=== PATIENT | female | born 1950 | race Asian ===

== ENCOUNTER 2025-02-04 17:05 | Inpatient (IN) | payer OTHER ==
[~2025-02-04] VITALS: Ht 147.3 cm; Wt 53.2 kg
[2025-02-04 17:07] VITALS: O2SAT 100
[2025-02-04] MEDS: SODIUM CHLORIDE 0.9% 1,000 ML IV ONE (18:25)
[2025-02-04 18:55] LABS: BASOPHILS % 0.2 % (0.0-2.0); EOSINOPHILS % 0.3 % (0.0-5.0); HEMATOCRIT. 42.6 % (36.0-48.0); HEMOGLOBIN. 13.8 g/dL (12.0-16.0); LYMPHOCYTES % 7.5 % (20.0-50.0); MEAN PLATELET VOLUME 7.8 fl (7.4-10.4); MONOCYTES % 4.2 % (2.0-8.0); NEUTROPHILS % 87.8 % (40.0-76.0); PLATELET 264 x1000/uL (130-400); RED BLOOD CELL COUNT 4.75 mill/uL (4.2-5.4); RED CELL DISTRIBUTION WIDTH 13.7 % (11.6-14.6)
[2025-02-04 19:13] LABS: CREATININE 1.2 mg/dL (0.6-1.0); UREA NITROGEN BLOOD 16 mg/dL (9-23)
[2025-02-04 19:15] LABS: ASPARTATE AMINOTRANSFERASE 213 IU/L (<34)
[2025-02-04 19:16] LABS: BILIRUBIN DIRECT < 0.1 mg/dL (<=3.0); BILIRUBIN TOTAL 0.3 mg/dL (0.1-1.0); PROTEIN TOTAL 7.0 g/dL (6.0-8.3)
[2025-02-04 19:18] LABS: TROPONIN I HIGH SENSITIVITY 365 ng/L (3.0-34)
[2025-02-04 21:06] LABS: TROPONIN I HIGH SENSITIVITY 684 ng/L (3.0-34)
[2025-02-04 21:50] VITALS: BP 176/96; PULSE 83; RESP 18; TEMP 36.8; TEMP 36.8628; O2SAT 93
[2025-02-04] MEDS ORDERED: ONDANSETRON HCL 4MG/2ML INJ IV PRN (22:00)
[2025-02-04] MEDS ORDERED: MAGNESIUM/ALUMINUM HYDROXIDE/SIMETHICONE 30ML UDC PO PRN (22:00)
[2025-02-04] MEDS ORDERED: HYDROCODONE/ACETAMINOPHEN 5/325MG TABLET PO PRN (22:00)
[2025-02-04] MEDS ORDERED: MORPHINE SULFATE 4 MG/ML INJ (FOR IV/IM USE) IV PRN (22:00)
[2025-02-04] MEDS ORDERED: ACETAMINOPHEN 325MG TABLET PO PRN (22:00)
[2025-02-04] MEDS: DEXT 5%/0.45% NACL 1000ML 1,000 ML IV SCH (23:09)
[2025-02-04] MEDS: ENOXAPARIN 40MG/0.4ML SYR SUBCUT SCH (23:09)
[2025-02-04] MEDS: ACETAMINOPHEN 325MG TABLET PO SCH (23:09)
[2025-02-04] MEDS ORDERED: OLAN5TAB74 PO (23:54)
[2025-02-04] MEDS ORDERED: OLAN2.5T77 PO (23:54)
[2025-02-05] VITALS: BP 118/61; PULSE 68; RESP 16; TEMP 36.6; O2SAT 95
[2025-02-05] MEDS ORDERED: IOHEXOL-350 100 ML BOTTLE ONE (02:09)
[2025-02-05 04:00] VITALS: BP_SYST 123; BP_SYST 159; BP_DIAS 49; BP_DIAS 63; PULSE 40; PULSE 73; RESP 15; RESP 17; TEMP 35.7; TEMP 36.3; O2SAT 100
[2025-02-05 07:22] LABS: BASOPHILS % 0.5 % (0.0-2.0); EOSINOPHILS % 0.3 % (0.0-5.0); HEMATOCRIT. 38.7 % (36.0-48.0); HEMOGLOBIN. 12.8 g/dL (12.0-16.0); LYMPHOCYTES % 17.6 % (20.0-50.0); MEAN PLATELET VOLUME 8.2 fl (7.4-10.4); MONOCYTES % 6.3 % (2.0-8.0); NEUTROPHILS % 75.3 % (40.0-76.0); PLATELET 252 x1000/uL (130-400); RED BLOOD CELL COUNT 4.33 mill/uL (4.2-5.4); RED CELL DISTRIBUTION WIDTH 13.7 % (11.6-14.6)
[2025-02-05 07:50] LABS: TRIGLYCERIDE 85.0 mg/dL (0-150)
[2025-02-05 07:51] LABS: LDL CHOLESTEROL 104.0 mg/dL (5-100)
[2025-02-05 08:00] VITALS: BP 181/69; PULSE 58; RESP 18; TEMP 37.1; O2SAT 98
[2025-02-05 08:02] LABS: TROPONIN I HIGH SENSITIVITY 1001.0 ng/L (3.0-34)
[2025-02-05] MEDS ORDERED: IOHEXOL-300 100 ML BOTTLE ONE (08:09)
[2025-02-05] MEDS: CLONIDINE 0.1MG TABLET PO PRN (08:26)
[2025-02-05] MEDS: PANTOPRAZOLE SODIUM 40 MG/VIAL IV SCH (08:26)
[2025-02-05] MEDS ORDERED: NALOXONE HCL 0.4MG/ML VIAL IV PRN (09:45)
[2025-02-05] MEDS ORDERED: IPRATROPIUM/ALBUTEROL 0.5-3(2.5)MG/3ML NEB HHN PRN (10:00)
[2025-02-05] MEDS: ISOSORBIDE MONONITRATE 30MG TABLET SR 24HR PO SCH (11:40)
[2025-02-05] MEDS: ASPIRIN 81MG TABLET PO SCH (11:40)
[2025-02-05] MEDS: ENOXAPARIN 60MG/0.6ML SYR SUBCUT NR (11:45)
[2025-02-05 12:00] VITALS: BP 118/49; PULSE 47; RESP 20; TEMP 36.5; O2SAT 99
[2025-02-05 12:59] LABS: CREATININE 1.1 mg/dL (0.6-1.0); UREA NITROGEN BLOOD 16.0 mg/dL (9-23)
[2025-02-05 13:30] LABS: CLARITY URINE CLEAR (CLEAR); COLOR URINE YELLOW (YELLOW); GLUCOSE URINE NEGATIVE (NEGATIVE); KETONES URINE NEGATIVE (NEGATIVE); LEUKOCYTE ESTERASE URINE NEGATIVE (NEGATIVE); NITRITE URINE NEGATIVE (NEGATIVE); OCCULT BLOOD URINE NEGATIVE (NEGATIVE); PH URINE 6.5 (4.5-8.0); PROTEIN URINE TRACE (NEGATIVE); SPECIFIC GRAVITY URINE 1.033 (1.005-1.030); UROBILINOGEN URINE 1.0 E.U./dL (0.2-1.0)
[2025-02-05 13:54] LABS: BACTERIA URINE RARE; RBC URINE 0-2 /hpf (0-2); SQUAMOUS EPITHELIAL CELL URINE FEW /lpf (RARE/1+); WBC URINE 0-2 /hpf (0-2); YEAST URINE NONE SEEN
[2025-02-05 13:57] LABS: SODIUM URINE RANDOM 92 mEq/L
[2025-02-05 14:04] LABS: *AMPHETAMINES SCREEN URINE NEGATIVE (NEGATIVE); *BARBITURATES SCREEN URINE NEGATIVE (NEGATIVE); *BENZODIAZEPINES SCREEN URINE NEGATIVE (NEGATIVE); *COCAINE SCREEN URINE NEGATIVE (NEGATIVE); CANNABINOID URINE SCREEN NEGATIVE (NEGATIVE); ECSTASY MDMA SCREEN URINE NEGATIVE (NEGATIVE); METHADONE URINE SCREEN NEGATIVE (NEGATIVE); OPIATES URINE SCREEN NEGATIVE (NEGATIVE); PHENCYCLIDINE URINE SCREEN NEGATIVE (NEGATIVE)
[2025-02-05 14:05] LABS: UREA NITROGEN URINE RANDOM 493 mg/dL
[2025-02-05 14:11] LABS: OSMOLALITY URINE 491 mOsm/kg (500-850)
[2025-02-05 16:00] VITALS: BP 98/49; PULSE 51; RESP 18; TEMP 36.4; O2SAT 94
[2025-02-05 17:08] LABS: PHOSPHORUS 3.7 mg/dL (2.5-4.9)
[2025-02-05 17:12] LABS: TROPONIN I HIGH SENSITIVITY 520 ng/L (3.0-34)
[2025-02-05 20:00] VITALS: BP 150/89; PULSE 69; RESP 16; TEMP 36.6; O2SAT 92
[2025-02-05] MEDS: ATORVASTATIN CALCIUM 40MG TABLET PO SCH (21:06)
[2025-02-06] VITALS (7 sets, daily range): BP systolic 118–193; BP diastolic 8–89; PULSE 63–82; RESP 16–26; TEMP 36.3–37; O2SAT 96–100
[2025-02-06] MEDS: ZOLPIDEM TARTRATE 5MG TABLET PO PRN (00:57)
[2025-02-06] MEDS: HYDRALAZINE 20MG/ML VIAL IV PRN (08:48)
[2025-02-06 08:57] LABS: BASOPHILS % 0.5 % (0.0-2.0); EOSINOPHILS % 1.5 % (0.0-5.0); HEMATOCRIT. 37.8 % (36.0-48.0); HEMOGLOBIN. 12.6 g/dL (12.0-16.0); LYMPHOCYTES % 21.4 % (20.0-50.0); MEAN PLATELET VOLUME 8.4 fl (7.4-10.4); MONOCYTES % 5.5 % (2.0-8.0); NEUTROPHILS % 71.1 % (40.0-76.0); PLATELET 233 x1000/uL (130-400); RED BLOOD CELL COUNT 4.26 mill/uL (4.2-5.4); RED CELL DISTRIBUTION WIDTH 13.7 % (11.6-14.6)
[2025-02-06 09:33] LABS: CREATININE 1.0 mg/dL (0.6-1.0); UREA NITROGEN BLOOD 16.0 mg/dL (9-23)
[2025-02-06] MEDS ORDERED: MIDAZOLAM HCL 2 MG/2 ML VIAL ONE (12:47)
[2025-02-06] MEDS ORDERED: FENTANYL CITRATE/PF 50MCG/ML 2ML VIAL ONE (12:47)
[2025-02-06] MEDS ORDERED: DIPHENHYDRAMINE 50MG/ML VIAL ONE (13:03)
[2025-02-06] MEDS ORDERED: IODIXANOL 320MG/ML 100 ML BOTTLE IV ONE (13:42)
[2025-02-06] MEDS ORDERED: HEPARIN 1000 UNITS/ML 10ML ONE (13:58)
[2025-02-06] MEDS ORDERED: HYDRALAZINE 20MG/ML VIAL ONE (14:01)
[2025-02-06] MEDS ORDERED: CLOPIDOGREL 75MG TABLET ONE (14:10)
[2025-02-06] MEDS ORDERED: ASPIRIN 325MG TABLET ONE (14:11)
[2025-02-06] MEDS ORDERED: ATROPINE SULFATE 1MG/10ML SYR IV PRN (14:30)
[2025-02-06] MEDS: SODIUM CHLORIDE 0.45% 500 ML IV SCH (14:30)
[2025-02-06] MEDS ORDERED: ACETAMINOPHEN 325MG TABLET PO PRN (14:30)
[2025-02-06] MEDS: OLANZAPINE 5MG TABLET PO SCH (22:04)
[2025-02-07] VITALS: BP 108/53; PULSE 63; RESP 16; TEMP 36.6; O2SAT 100
[2025-02-07 04:00] VITALS: BP 175/81; PULSE 76; RESP 23; TEMP 36.4; O2SAT 99
[2025-02-07 06:41] LABS: BASOPHILS % 0.7 % (0.0-2.0); EOSINOPHILS % 1.1 % (0.0-5.0); HEMATOCRIT. 41.6 % (36.0-48.0); HEMOGLOBIN. 13.5 g/dL (12.0-16.0); LYMPHOCYTES % 15.0 % (20.0-50.0); MEAN PLATELET VOLUME 8.4 fl (7.4-10.4); MONOCYTES % 5.5 % (2.0-8.0); NEUTROPHILS % 77.7 % (40.0-76.0); PLATELET 252 x1000/uL (130-400); RED BLOOD CELL COUNT 4.65 mill/uL (4.2-5.4); RED CELL DISTRIBUTION WIDTH 13.9 % (11.6-14.6)
[2025-02-07 06:49] LABS: CREATININE 0.9 mg/dL (0.6-1.0); UREA NITROGEN BLOOD 12 mg/dL (9-23)
[2025-02-07 07:54] VITALS: BP 200/99; PULSE 79; RESP 23; TEMP 36.6; O2SAT 99
[2025-02-07] MEDS: CLOPIDOGREL 75MG TABLET PO SCH (08:36)
[2025-02-07] MEDS: FAMOTIDINE 20MG TABLET PO SCH (08:36)
[2025-02-07] MEDS: OLANZAPINE 2.5MG TABLET PO SCH (08:37)
[2025-02-07 12:00] VITALS: BP 113/62; PULSE 73; RESP 19; TEMP 37; O2SAT 98
[2025-02-07] MEDS: POTASSIUM CHLORIDE 20MEQ/PACKET PO SCH (13:45)
[2025-02-07] MEDS: APIXABAN 5 MG TABLET PO SCH (13:45)
[2025-02-07] MEDS: SODIUM CHLORIDE 0.9% 500 ML IV SCH (13:47)
[2025-02-07 15:47] VITALS: BP 94/54; PULSE 78; RESP 23; TEMP 37.6; O2SAT 99
[2025-02-07 20:00] VITALS: BP 136/98; PULSE 78; RESP 20; TEMP 36.7
[2025-02-07] MEDS: METOPROLOL TARTRATE 25MG TABLET PO SCH (20:03)
[2025-02-07] MEDS: LORAZEPAM 2MG/ML UD SYRINGE IV NR (23:15)
[2025-02-08 04:00] VITALS: BP 124/65; PULSE 100; RESP 20; TEMP 36.7; O2SAT 100
[2025-02-08 08:00] VITALS: BP 122/61; PULSE 64; RESP 19; TEMP 36.8; O2SAT 99
[2025-02-08 12:00] VITALS: BP 133/64; PULSE 67; RESP 16; TEMP 36.7; O2SAT 98
[2025-02-08 16:00] VITALS: BP 138/63; PULSE 71; RESP 21; TEMP 36.9; O2SAT 100
[2025-02-08 16:48] LABS: BG BASE EXCESS -2.6 mmol/L (-2.0-3.0); BG CARBOXYHEMOGLOBIN 1.6 % (0.5-1.5); BG DEOXYHEMOGLOBIN 4.0 % (0.0-5.0); BG FRACTION INSPIRED OXYGEN 21; BG HCO3 ACT 19.8 mmol/L (21.0-28.0); BG METHEMOGLOBIN 0.3 % (0.5-1.5); BG OXYGEN SATURATION 95.9 % (94.0-98.0); BG OXYHEMOGLOBIN 94.1 % (94.0-98.0); BG PCO2 27.9 mmHg (32.0-45.0); BG PH 7.470 (7.350-7.450); BG PO2 75.2 mmHg (83.0-108.0); BG SAMPLE SITE LEFT BRACHIAL; BG TOTAL HEMOGLOBIN 12.6 g/dL (12.0-16.0); BG VENT MODE ROOM AIR
[2025-02-08 20:00] VITALS: BP 126/46; PULSE 77; RESP 26; TEMP 36.9; O2SAT 99
[2025-02-09] VITALS: BP 135/68; PULSE 62; RESP 17; TEMP 36.7; O2SAT 99
[2025-02-09 04:00] VITALS: BP 135/69; PULSE 66; RESP 21; TEMP 36.9; O2SAT 97
[2025-02-09 08:00] VITALS: BP 156/73; PULSE 61; RESP 20; TEMP 36.7; O2SAT 98
[2025-02-09] MEDS ORDERED: CLOP-31 PO (09:57)
[2025-02-09] MEDS ORDERED: APIX5TAB PO (09:57)
[2025-02-09] MEDS ORDERED: METO25TA6 PO (09:57)
[2025-02-09] MEDS ORDERED: LIP40 PO (09:57)
[2025-02-09 12:00] VITALS: BP 119/71; PULSE 57; RESP 21; TEMP 36.8; O2SAT 97
[2025-02-09 15:43] VITALS: BP 122/66; PULSE 89; TEMP 98
[2025-02-09 16:00] VITALS: BP 124/71; PULSE 73; RESP 19; TEMP 36.7; O2SAT 99
== END 2025-02-09 17:15 | disposition home or self-care (01) | DRG 321 ==
LOC: ER 17:05 → EDBEDREQ 17:31 → EDBEDREQTM 21:06 → EDBEDREQ 21:06 → ENRESERV 21:16 → 5WST 21:30 → 3WST 02-06 14:49
PROVIDERS: ADMIT Internal Medicine; ATTEND Internal Medicine
PROC: 4A023N7 Measurement of Cardiac Sampling and Pressure, Left Heart, Percutaneous Approach (ICD-10-PCS; principal; 2025-02-09)
PROC: 027035Z Dilation of Coronary Artery, One Artery with Two Drug-eluting Intraluminal Devices, Percutaneous Approach (ICD-10-PCS; 2025-02-09)
PROC: B211YZZ Fluoroscopy of Multiple Coronary Arteries using Other Contrast (ICD-10-PCS; 2025-02-09)
DX: I21.4 Non-ST elevation (NSTEMI) myocardial infarction (principal); I46.9 Cardiac arrest, cause unspecified; J96.01 Acute respiratory failure with hypoxia; S22.41XA Multiple fractures of ribs, right side, initial encounter for closed fracture; E87.0 Hyperosmolality and hypernatremia; T79.7XXA Traumatic subcutaneous emphysema, initial encounter; J93.83 Other pneumothorax; Z66 Do not resuscitate; F03.90 Unspecified dementia, unspecified severity, without behavioral disturbance, psychotic disturbance, mood disturbance, and anxiety; I10 Essential (primary) hypertension; E78.5 Hyperlipidemia, unspecified; I25.10 Atherosclerotic heart disease of native coronary artery without angina pectoris; H54.8 Legal blindness, as defined in USA; I48.0 Paroxysmal atrial fibrillation; X58.XXXA Exposure to other specified factors, initial encounter; I49.1 Atrial premature depolarization; Z79.01 Long term (current) use of anticoagulants; Z79.02 Long term (current) use of antithrombotics/antiplatelets; I25.2 Old myocardial infarction; Z79.82 Long term (current) use of aspirin; Y93.89 Activity, other specified; Y92.89 Other specified places as the place of occurrence of the external cause; Y99.8 Other external cause status
CPT/HCPCS: 36415; 36600; 71045; 71046; 71275; 80048; 80061; 80076; 80305; 81003; 82375; 82550; 82570; 82805; 83036; 83735; 83880; 83930; 83935; 84100; 84300; 84443; 84484; 84540; 85025; 85347; 92928; 93005; 93306; 93458; 93880; 96360; 97162; 97530; 99285; A4606; C1725; C1769; C1874; C1887; C1893; J0360; J1200; J1644; J1650; J2060; J2250; J2470; J3010; J7030; Q9967